=== PATIENT | female | born 1930 | race Caucasian/White ===

== ENCOUNTER 2016-08-23 20:18 | Inpatient (IN) | payer MEDICARE, OTHER ==
--- NOTE | ~2016-08-23 | HP ---
History And Physical [facility] [address] [place]. [address] NAME: BONNIE CAMERON : 31 STATUS : ADM IN [facility]#: [id number] AGE: 85 ADM/REG DATE : 08/23/16 MR#: [id number] REPORT SERV DATE: 08/24/16 DICTATED BY: BRENDA BERNARD DATE: 08/23/16 REPORT STATUS : Draft TRANSCRIBED BY: NATHAN DATE: 08/23/16 DATE OF ADMISSION: 08/23/2016 CHIEF COMPLAINT: Continuous coughing and fatigue and suspected pneumonia. HISTORY OF PRESENT ILLNESS: This is an 85-year-old female with no past medical history being followed by her primary care physician, Dr. Swain as an outpatient, being treated for suspected right lower lobe pneumonia over the past two weeks after the patient developed symptoms of coughing and generalized fatigue. The patient had an outpatient chest x-ray with findings of possible right lower lobe pneumonia and treated with IV and Rocephin and oral antibiotics. The patient states she got better, but then got worse again. She had, according to her , dyspnea on exertion over the past two to three months and states that the patient easily becomes more exerted with short distances over the past few months. She denies any subjective fever or chills. No night sweats. No nasal congestion. No sore throat. She denies any history of clots in the past. No family history of clot. No recent surgeries no IVs or ports. The patient and family states that her last traveling was in January and February of last year for which in January the patient required a 2-day travel to [place], [place] and in February a 10-day traveled to [place]. She denies any lower extremity edema. Also denies any recent trauma. The patient also is not up-to-date for a mammogram or colonoscopy. She has never had a mammogram or colonoscopy and has refused and still refuses any malignancy screening. She presented to [facility] and was referred here by primary care for ongoing symptoms. The patient was seen by Dr. Rancho Holland and had a CTA of the chest with findings of moderate- to-large burden, multifocal, bilateral pulmonary emboli with the largest being in the right main pulmonary artery. The patient was initiated on an IV heparin drip. Also, the patient was found to be saturating 85% on room air prior to her CT, but greater than 90% on room air at rest. The patient denies any chest pain and currently denies any shortness of breath at rest. The patient has been advised to remain at bed rest at this time. REVIEW OF SYSTEMS: Please refer to HPI. PAST MEDICAL HISTORY: Pneumonia. PAST SURGICAL HISTORY: History of nasal cancer removal. FAMILY HISTORY: No venous clots. SOCIAL HISTORY: Quit tobacco abuse over 30 years ago. No alcohol or illicit drugs. The patient is not sedentary. According to the family, the patient is very active and ambulates with for exercise, however, exercise tolerance has decreased over the past several months. ALLERGIES: NO KNOWN ALLERGIES. History And Physical [address] [address] NAME: BONNIE CAMERON : 31 STATUS : ADM IN [facility]#: [id number] AGE: 85 ADM/REG DATE : 08/23/16 MR#: [id number] REPORT SERV DATE: 08/24/16 DICTATED BY: BRENDA BERNARD DATE: 08/23/16 REPORT STATUS : Draft TRANSCRIBED BY: NATHAN DATE: 08/23/16 HOME MEDICATIONS: Lipitor, Z-Luis, M-End PE liquid, Advil p.r.n., lisinopril, multivitamin, tramadol and an inhaler. Please refer to medication reconciliation per pharmacy. PHYSICAL EXAMINATION: VITAL SIGNS: Temp of 98.2, blood pressure 110/71 to 124/76 with a pulse of 78, respiration of 18, saturating 92-97% on 2 L. GENERAL: The patient is alert oriented x3, currently in no distress. Well-nourished. HEENT: Pupils equal, round, and reactive to light. Extraocular muscles are intact. Moist mucous membranes. CARDIOVASCULAR: S1, S2. Regular rate and rhythm. No murmurs, rubs, or gallops. No JVD. RESPIRATORY: Clear to auscultation bilaterally. No wheezes but mild crackles in the right lower lobe. No rhonchi. No signs of tachypnea. ABDOMEN: Positive bowel sounds. Soft, nontender. No rebound. No fluid wave. No distention. EXTREMITIES: 2+ pulse bilaterally. No edema. NEURO: Cranial nerves II through XII grossly intact. Moves all four extremities. No neuro focal deficits. DIAGNOSTIC STUDIES: CT of the chest with moderate large incomplete, obstructing right main pulmonary artery emboli extending into the right descending pulmonary artery with obstructing thrombus within several pulmonary artery segments. Nonobstructing segment pulmonary emboli in the right middle lobe and right upper lobe. There is some mild fusiform aneurysmal change in the mid ascending thoracic aorta measuring 3.7 cm in transverse diameter. No dissection, 80% chronic-appearing, insufficient fracture at T11 vertebrae. No significant retropulsed fragment. There was an ill-defined infiltrate in the periphery of right lower lobe most likely representing pulmonary infarct with underlying small pleural effusion. Moderate large burden multifocal bilateral pulmonary emboli. EKG: Normal sinus rhythm and Q-waves in inferior lead V3. No ST elevation. LABORATORY DATA: Sodium 134, potassium 4.3, chloride 98, bicarb of 26, BUN of 10, creatinine 0.75 with a glucose of 110, calcium of 8.8, T-bilirubin of 0.4, alkaline phosphatase of 85, ALT of 17, AST of 15. White count of 9.2 with a hemoglobin of 13.6, platelet count 293. INR is still pending. ASSESSMENT AND PLAN: 1. Acute kzqrxfun-wc-aqbqw burden bilateral PE. 2. Right lower lobe pulmonary infarction secondary to above. 3. Acute hypoxia secondary to above. 4. We will continue with IV heparin drip. 5. We will send workup for any underlying hematologic disorder, also will consult Hematology for hypercoagulability workup. The patient currently has no risk factors for PE. Also would check venous Doppler ultrasound of the lower extremities and echocardiogram. Placed on telemetry and closely monitor vitals. Currently hemodynamically stable. Patient to remain on bed rest at this time. 6. The patient will be followed by my colleague, who will attend to this patient's care. History And Physical [address] [place]. [address] NAME: BONNIE CAMERON : 32 STATUS : ADM IN [facility]#: [id number] AGE: 85 ADM/REG DATE : 08/23/16 MR#: [id number] REPORT SERV DATE: 08/24/16 DICTATED BY: BRENDA BERNARD DATE: 08/23/16 REPORT STATUS : Draft TRANSCRIBED BY: NATHAN DATE: 08/23/16 [facility]/MODL Brenda Bernard M.D. / [id number] CC: Candido Smith
--- NOTE | ~2016-08-23 | DS ---
Discharge Summary [facility] [address] [place]. [address] NAME: BONNIE CAMERON : 32 STATUS : DIS IN PAT#: [id number] AGE: 85 ADM/REG DATE : 08/23/16 MR#: [id number] REPORT SERV DATE: 08/27/16 DICTATED BY: DESTINEY VIDALES DATE: 08/27/16 REPORT STATUS : Draft TRANSCRIBED BY: MODL DATE: 08/27/16 ADMISSION DATE: 08/23/2016 DISCHARGE DATE: 08/26/2016 DISCHARGE DIAGNOSES: 1. Acute and subacute pulmonary embolism and bilateral deep venous thromboses. 2. Acute hypoxic respiratory failure on arrival, resolved. 3. Hypertension. 4. Recent pneumonia. 5. A 3.7 cm ascending thoracic aneurysm on arrival. 6. Gallstones, incidental finding. CONSULTATIONS: [facility], Dr. Manolo Hernadez. DISCHARGE FOLLOWUP: 1. Dr. Swain in one week for followup CBC, BMP, possible discharge imaging, and ascending aneurysm, surveillance following. 2. Follow up with Dr. Hernadez in two weeks. O2 ambulating trial prior to discharge, 90% on room air at rest, 94% with ambulation. DISCHARGE MEDICATIONS: 1. Atorvastatin 20 mg p.o. q.h.s. 2. Lisinopril 10 mg one tablet p.o. at bedtime, held currently and to follow up with PCP before starting. 3. Multivitamin one tablet p.o. daily. 4. Xarelto started at 50 mg one tablet p.o. b.i.d., after fecal occult blood test was negative. This was negative inpatient. 5. Tramadol 50 mg one tablet p.o. t.i.d. 6. Z-Luis was already been completed prior to admission. HOSPITAL COURSE: Please see H and P for complete details. HISTORY OF PRESENT ILLNESS: Briefly, Ms. Cameron is a very pleasant 85-year-old female, fairly healthy prior to this admission, who has done multiple episodes of traveling over the last few months including a 10-day trip to [place], and was noted to have recently been treated for pneumonia, and comes in for continued coughing, fatigue, and suspected repeat pneumonia. Symptoms have been recurrent for multiple months and overall fatigue. On arrival the patient was noted to be 84% on room air to 90%, this prompted CTA that was performed in the emergency room. Noted moderate large burden multifocal bilateral PE, largest on right main pulmonary artery extending to the right descending pulmonary artery, lobar and segmental pulmonary arteries on the right lower lobe, smaller pulmonary emboli within the segmental arteries of the right upper lobe, right middle lobe, left upper lobe, and left lower lobe probable peripheral areas of near segmental size, pulmonary infarct right lower lobe, bibasilar segments of underlying small pleural effusion less likely pneumonia, aneurysmal thoracic aorta 3.7 cm diameter, enlarged main pulmonary artery 3 cm in Discharge Summary [facility] [id number] [place]. [address] NAME: BONNIE CAMERON : 32 STATUS : DIS IN PAT#: [id number] AGE: 85 ADM/REG DATE : 08/23/16 MR#: [id number] REPORT SERV DATE: 08/27/16 DICTATED BY: DESTINEY VIDALES DATE: 08/27/16 REPORT STATUS : Draft TRANSCRIBED BY: MODZonia DATE: 08/27/[address] evidence of pulmonary hypertension, chronic 80% anterior insufficiency fracture T11 vertebra with no significant retropulsed fragments. Echo, small areas of clot on the right common femoral vein, left middle femoral clot probable chronic, small residual chronic clot represents simply a small amount of remaining clot in the lower extremities which appear detached as consistent with PE noted on CTA. Blood cultures remain negative at time of discharge. The patient has workup with factor 5 Leiden, anticardiolipin which are still pending, and will need to be followed up. HOSPITAL COURSE: Please see H and P for complete details of the HPI. Briefly, again Ms. Cameron is a very pleasant 85-year-old female, who comes in after having history of multiple traveling experiences including 10-day history to [place] two months ago in approximately February, has over the last three weeks has decreased exercise tolerance and increased fatigue. Has recently been treated for pneumonia for the last two weeks. The patient was concerned for increased shortness of breath in which she was imaged for acute pneumonia, but CT PE was also on differential with hypoxia on presentation noted to have significant clot burden, placed on heparin drip with Pulmonology/Oncology consult due to unprovoked DVT, antiphospholipid workup was initiated, was still pending at the time of discharge. The patient was able to be successfully transitioned to Xarelto after fecal occult blood test was negative. Recommendation for at least 8 to 12 months per Oncology and will have followup with Oncology at discharge. The patient had resolution of hypoxia, and was able to ambulate without O2 with treatment. No pain was noted. The patient was okay for discharge and was educated on nontraumatic type activity. All questions were answered with the patient and family at bedside. DDN/MODL Destiney Vidales MD / [id number] CC: MD Brandon Martin, GENERATION [employer]CH[employer]IC HELPER-C
--- NOTE | ~2016-08-23 | CN ---
Consultation Report [facility] [address] [place]. [address] NAME: BONNIE CAMERON : 32 STATUS : ADM IN PAT#: [id number] AGE: 85 ADM/REG DATE : 08/23/16 MR#: [id number] REPORT SERV DATE: 08/24/16 DICTATED BY: MANOLO ALBRIGHT DATE: 08/24/16 REPORT STATUS : Draft TRANSCRIBED BY: MODL DATE: 08/24/16 HEMATOLOGY CONSULTATION DATE OF CONSULTATION: REASON FOR CONSULTATION: Bilateral pulmonary embolisms. CHIEF COMPLAINT: Shortness of breath. HISTORY OF PRESENT ILLNESS: Ms. Cameron is an 85-year-old female with a history of hypertension and hypercholesterolemia, followed by nurse practitioner, Matthieu Swain and overseeing PCP, Dr. French. Over the past two to three weeks, she had a complaint of persistent dry cough, generalized fatigue, and shortness of breath, with an outpatient chest x-ray showing a right lower lobe pneumonia that has been refractory to IV and oral antibiotics. After acute exacerbation, she presented to [facility] ER and CTA of the chest revealed bilateral pulmonary emboli with a greater clot burden on the right. She was found to be hypoxic with O2 sat in the 80s that improved with oxygen and she was started on a heparin drip. Ultrasound of the lower extremities and echocardiogram of the heart are currently still pending. Her hypercoagulable workup including factor V Leiden, protein C and S, and anticardiolipin antibody panel has been ordered as well. We have been asked to assist with further evaluation of the etiology for her clots. Today, she says that she feels okay and her shortness of breath has improved. She is requesting to ambulate. Her p.o. intake has declined over the past month, associated with mild weight loss. She has never had a mammogram or a screening colonoscopy. FAMILY HISTORY: Includes her mother of a brain tumor in her 80s and her father had heavy alcohol use and of an HI. PAST MEDICAL HISTORY: Significant for hypertension and cholesterolemia. SOCIAL HISTORY: She quit smoking 40 years ago but is very vague in terms of how long she actually smoked for, suggesting one pack per week, possibly for 10 years or so. She had an appendectomy when she was 16 years old. Otherwise, has never been in the hospital outside of childbirth. She currently lives with her and performs all activities without difficulty. PHYSICAL EXAMINATION: VITAL SIGNS: Include a blood pressure of 128/71, respiratory rate of 16, O2 saturation of 93%, temperature of 97.1, and weight of 67 kg. GENERAL: This is a white female, in no apparent distress. She is awake, alert, and oriented x3. Extraocular muscles are intact. Her pupils are equally round and reactive to light. She has moist mucous membranes. NECK: Supple with no thyromegaly. Consultation Report [facility] [id number] [place]. [address] NAME: BONNIE CAMERON : 32 STATUS : ADM IN PAT#: [id number] AGE: 85 ADM/REG DATE : 08/23/16 MR#: [id number] REPORT SERV DATE: 08/24/16 DICTATED BY: MANOLO ALBRIGHT DATE: 08/24/16 REPORT STATUS : Draft TRANSCRIBED BY: NATHAN DATE: 08/24/16 CARDIOVASCULAR: She has a regular rate. No rubs, murmurs, or gallops. 2+ dorsalis pedis and radial pulses. LUNGS: Sound clear to auscultation. No increased work of breathing. ABDOMEN: Soft, nontender, and nondistended. Positive bowel sounds. No guarding, organomegaly, or rebound. MUSCULOSKELETAL: She has no joint erythema or effusions. INTEGUMENTARY: Hair, skin, and nails appear to be normal. PSYCHIATRIC: She has appropriate thought content and thought process. Normal affect and mood. NEUROLOGIC: She has no focal neurological deficits. 2+ DTRs. PERTINENT LABORATORIES: Include a creatinine of 0.5, an albumin of 2.5, total protein of 4.2, calcium of 8.2, glucose of 115. AST 17 and ALT 15. Her CBC is completely normal with a normal differential. IMAGING: CT scan images were reviewed and described in the above HPI. IMPRESSION AND PLAN: Acute bilateral pulmonary emboli, unclear etiology. Ms. Cameron does not appear to have any obvious provoking factors such as travel, estrogen use, recent surgery, or known thrombophilia diagnosis. While her age is an unmodifiable risk factor, occult malignancy should be also considered in the differential. Though the probability of this is statistically low, I feel she is at high risk to have an abnormality found on screening CT scanning because she has never pursued mammography or colonoscopy screening. She also complains of decreased appetite and weight loss, so it is reasonable to pursue a CT scan of the abdomen and pelvis. I would also like to obtain a screening mammogram of both breasts. It is reasonable to follow up on the ordered hypercoagulable blood test, however, further testing is unnecessary at this point as it would not change her treatment management. In terms of anticoagulation, I recommend that she continue on a heparin drip for now, but over the next 24-48 hours, she can be transitioned to Xarelto 15 mg p.o. twice a day x21 days and then, she can take 20 mg once a day thereafter. She should be anticoagulated for approximately 8-12 months because this is, at this point, an unprovoked pulmonary embolism. MARTA/NATHAN Manolo Albright MD / [id number] CC: Consultation Report [address] [place]. [address] NAME: BONNIE CAMERON : 32 STATUS : ADM IN [facility]#: [id number] AGE: 85 ADM/REG DATE : 08/23/16 MR#: [id number] REPORT SERV DATE: 08/24/16 DICTATED BY: MANOLO ALBRIGHT DATE: 08/24/16 REPORT STATUS : Draft TRANSCRIBED BY: NATHAN DATE: 08/24/16 Candido Smith
[2016-08-23 15:34] LABS: BASOPHILS 0.2 %; BASOPHILS ABSOLUTE 0.02 10/3/uL (0.0-0.16); EOSINOPHILS 0.8 %; EOSINOPHILS ABSOLUTE 0.07 10/3/uL (0.0-0.53); ER CBC TAT 0 Hrs 05 Mins; HEMATOCRIT 40.4 % (36.0-48.0); HEMOGLOBIN 13.6 g/dL (12.0-16.0); IMMATURE GRANULOCYTES 0.3 %; IMMATURE GRANULOCYTES ABSOLUTE 0.03 10/3/uL (0.0-0.11); LYMPHOCYTES 16.5 %; LYMPHOCYTES ABSOLUTE 1.52 10/3/uL (0.67-4.30); MANUAL DIFF NO %; MEAN CORPUS HGB CONC 33.7 g/dL (32.0-36.0); MEAN CORPUSCULAR HEMOGLOB 31.2 pg (26.0-34.0); MEAN CORPUSCULAR VOLUME 92.7 fL (80-100); MEAN PLATELET VOLUME 9.4 fL (9.2-13.0); MONOCYTES 6.6 %; MONOCYTES ABSOLUTE 0.61 10/3/uL (0.21-1.20); NEUTROPHILS 75.6 %; NEUTROPHILS ABSOLUTE 6.94 10/3/uL (2.02-8.40); PLATELET COUNT 293 10/3/uL (150-400); RBC DISTRIBUTION WIDTH 13.9 % (12.0-16.0); RED CELL COUNT 4.36 10/6/uL (4.0-5.6); WHITE BLOOD CELLS 9.2 10/3/uL (4.5-10.5)
[2016-08-23 15:50] LABS: A/G RATIO 0.7 (0.7-1.9); ALKALINE PHOSPHATASE 85 U/L (45-117); BUN (BLOOD UREA NITROGEN) 10 MG/DL (6-23); CALCIUM, SERUM 8.8 MG/DL (8.5-10.4); CHLORIDE, SERUM 98 MMOL/L (96-112); CO2 (CARBON DIOXIDE) 26 MMOL/L (24-34); CREATININE 0.75 MG/DL (0.55-1.02); GFR AFRICAN AMERICAN 85 ML/MIN (>=60); GFR NON AFRICAN AMERICAN 73 ML/MIN (>=60); GLOBULIN 4.2 G/DL (2.5-4.1); GLUCOSE, SERUM 110 MG/DL (60-99); POTASSIUM, SERUM 4.3 MMOL/L (3.5-5.3); SGOT(AST) 15 U/L (5-40); SGPT(ALT) 17 U/L (5-65); SODIUM, SERUM 134 MMOL/L (135-148); TOTAL BILIRUBIN 0.4 MG/DL (0-1.2); TOTAL PROTEIN 7.2 G/DL (6.0-8.5)
[2016-08-23] MEDS ORDERED: ULTRAM50 PO (23:00)
[2016-08-23] MEDS ORDERED: Z-PAK PO (23:00)
[2016-08-23] MEDS ORDERED: M-END PE PO (23:01)
[2016-08-23] MEDS ORDERED: PRIN10 PO (23:01)
[2016-08-23] MEDS ORDERED: INHALER SAMPLE INH (23:04)
[2016-08-23] MEDS ORDERED: LIPITOR20 PO (23:04)
[2016-08-23] MEDS ORDERED: ADVIL PO (23:05)
[2016-08-23] MEDS ORDERED: MULTIVIT/MIN PO (23:05)
[2016-08-24 02:46] LABS: BASOPHILS 0.2 %; BASOPHILS ABSOLUTE 0.01 10/3/uL (0.0-0.16); EOSINOPHILS 3.2 %; EOSINOPHILS ABSOLUTE 0.19 10/3/uL (0.0-0.53); HEMATOCRIT 36.9 % (36.0-48.0); HEMOGLOBIN 12.5 g/dL (12.0-16.0); IMMATURE GRANULOCYTES 0.3 %; IMMATURE GRANULOCYTES ABSOLUTE 0.02 10/3/uL (0.0-0.11); LYMPHOCYTES 25.1 %; LYMPHOCYTES ABSOLUTE 1.51 10/3/uL (0.67-4.30); MANUAL DIFF NO %; MEAN CORPUS HGB CONC 33.9 g/dL (32.0-36.0); MEAN CORPUSCULAR HEMOGLOB 30.9 pg (26.0-34.0); MEAN CORPUSCULAR VOLUME 91.3 fL (80-100); MEAN PLATELET VOLUME 9.4 fL (9.2-13.0); MONOCYTES 8.5 %; MONOCYTES ABSOLUTE 0.51 10/3/uL (0.21-1.20); NEUTROPHILS 62.7 %; NEUTROPHILS ABSOLUTE 3.78 10/3/uL (2.02-8.40); PLATELET COUNT 288 10/3/uL (150-400); RBC DISTRIBUTION WIDTH 13.6 % (12.0-16.0); RED CELL COUNT 4.04 10/6/uL (4.0-5.6)
[2016-08-24 02:59] LABS: ALBUMIN 2.5 G/DL (3.5-5.0); BUN (BLOOD UREA NITROGEN) 9 MG/DL (6-23); CALCIUM, SERUM 8.2 MG/DL (8.5-10.4); CHLORIDE, SERUM 101 MMOL/L (96-112); CO2 (CARBON DIOXIDE) 26 MMOL/L (24-34); GFR AFRICAN AMERICAN 103 ML/MIN (>=60); GFR NON AFRICAN AMERICAN 89 ML/MIN (>=60); GLUCOSE, SERUM 115 MG/DL (60-99); PHOSPHORUS, SERUM 3.5 MG/DL (2.5-4.5); SODIUM, SERUM 138 MMOL/L (135-148)
[2016-08-24 03:32] LABS: ANTITHROMBIN 3 ACTIVITY 88 % (80-121)
[2016-08-24 03:34] LABS: INTERNATIONAL NORMAL RATI 1.4 UNITS (-); PROTIME (NOT ORD) 16.8 SEC (12.0-14.5)
[2016-08-24 03:51] LABS: PARTIAL THROMBO TIME > 150.0 SEC (22.5-37.2)
[2016-08-25 06:47] LABS: BASOPHILS 0.6 %; BASOPHILS ABSOLUTE 0.03 10/3/uL (0.0-0.16); EOSINOPHILS 4.2 %; EOSINOPHILS ABSOLUTE 0.21 10/3/uL (0.0-0.53); HEMATOCRIT 33.9 % (36.0-48.0); HEMOGLOBIN 11.4 g/dL (12.0-16.0); IMMATURE GRANULOCYTES 0.4 %; IMMATURE GRANULOCYTES ABSOLUTE 0.02 10/3/uL (0.0-0.11); LYMPHOCYTES 28.1 %; LYMPHOCYTES ABSOLUTE 1.41 10/3/uL (0.67-4.30); MANUAL DIFF NO %; MEAN CORPUS HGB CONC 33.6 g/dL (32.0-36.0); MEAN CORPUSCULAR VOLUME 92.1 fL (80-100); MEAN PLATELET VOLUME 9.3 fL (9.2-13.0); MONOCYTES 7.8 %; MONOCYTES ABSOLUTE 0.39 10/3/uL (0.21-1.20); NEUTROPHILS 58.9 %; NEUTROPHILS ABSOLUTE 2.95 10/3/uL (2.02-8.40); PLATELET COUNT 290 10/3/uL (150-400); RBC DISTRIBUTION WIDTH 13.7 % (12.0-16.0); RED CELL COUNT 3.68 10/6/uL (4.0-5.6)
[2016-08-25 07:09] LABS: CALCIUM, SERUM 8.1 MG/DL (8.5-10.4); CHLORIDE, SERUM 105 MMOL/L (96-112); CO2 (CARBON DIOXIDE) 26 MMOL/L (24-34); CREATININE 0.52 MG/DL (0.55-1.02); FERRITIN 381 NG/ML (8-252); GFR AFRICAN AMERICAN 102 ML/MIN (>=60); GFR NON AFRICAN AMERICAN 88 ML/MIN (>=60); GLUCOSE, SERUM 103 MG/DL (60-99); IRON BINDING CAPACITY 167 MCG/DL (225-410); IRON, SERUM 46 MCG/DL (35-150); POTASSIUM, SERUM 4.1 MMOL/L (3.5-5.3); SODIUM, SERUM 140 MMOL/L (135-148); T4 (THYROXINE) TOTAL 9.9 MCG/DL (4.5-12.0)
[2016-08-25 07:10] LABS: BUN (BLOOD UREA NITROGEN) 5 MG/DL (6-23)
[2016-08-26 05:27] LABS: BASOPHILS 0.2 %; BASOPHILS ABSOLUTE 0.01 10/3/uL (0.0-0.16); EOSINOPHILS 3.3 %; EOSINOPHILS ABSOLUTE 0.18 10/3/uL (0.0-0.53); HEMATOCRIT 34.6 % (36.0-48.0); HEMOGLOBIN 11.7 g/dL (12.0-16.0); IMMATURE GRANULOCYTES 0.4 %; IMMATURE GRANULOCYTES ABSOLUTE 0.02 10/3/uL (0.0-0.11); LYMPHOCYTES ABSOLUTE 1.53 10/3/uL (0.67-4.30); MEAN CORPUS HGB CONC 33.8 g/dL (32.0-36.0); MEAN CORPUSCULAR HEMOGLOB 31.1 pg (26.0-34.0); MEAN PLATELET VOLUME 9.2 fL (9.2-13.0); MONOCYTES 10.1 %; MONOCYTES ABSOLUTE 0.55 10/3/uL (0.21-1.20); NEUTROPHILS ABSOLUTE 3.17 10/3/uL (2.02-8.40); PLATELET COUNT 304 10/3/uL (150-400); RED CELL COUNT 3.76 10/6/uL (4.0-5.6); WHITE BLOOD CELLS 5.5 10/3/uL (4.5-10.5)
[2016-08-26 05:50] LABS: MANUAL DIFF NO %
[2016-08-26] MEDS ORDERED: XARELTO15 MG PO (11:57)
[2016-08-26] MEDS ORDERED: XARELTO20 MG PO (11:58)
[2016-08-27 14:37] LABS: PROTEIN C ACTIVITY 116 % (70-145); PROTEIN S ACTIVITY 96 % (59-153)
[2016-08-27 14:48] LABS: ANTI-CARDIOLIPIN ANTIBODY IGA 2 CU (0-20)
== END 2016-08-26 14:34 | disposition home or self-care (01) | DRG 175 ==
LOC: ER 20:18 → 5NO 23:29
PROVIDERS: Emergency Medicine; Internal Medicine; Internal Medicine Hematology & Oncology; Student in an Organized Health Care Education/Training Program
DX: I26.99 Other pulmonary embolism without acute cor pulmonale (principal); J96.01 Acute respiratory failure with hypoxia; I82.511 Chronic embolism and thrombosis of right femoral vein; I10 Essential (primary) hypertension; E78.00 Pure hypercholesterolemia, unspecified; Z87.891 Personal history of nicotine dependence; I71.2 Thoracic aortic aneurysm, without rupture
CPT/HCPCS: 36415; 71020; 71275; 74177; 80048; 80053; 80069; 81241; 82272; 82652; 82728; 83540; 83550; 83735; 84436; 84443; 85025; 85300; 85303; 85306; 85610; 85730; 86147; 86850; 86900; 86901; 87040; 93005; 93306; 93970; 99285; A9270-GY; Q9967